=== PATIENT | male | born 1965 | race Caucasian/White ===

== ENCOUNTER 2025-02-11 15:27 | Inpatient (IN) ==
[2025-02-11] MEDS ORDERED: DILAUDID INJ IVP PRN (23:00)
[2025-02-11 23:37] LABS: MEAN PLATELET VOLUME 8.2 fL (7.4-11.0); RED CELL DISTRIBUTION WIDTH 16.5 % (11.6-16.5)
[2025-02-11 23:40] LABS: CREATININE 0.68 mg/dL (0.70-1.30); eGFR NON BLACK RACES > 60 (>60)
--- NOTE | 2025-02-11 23:42 | DR.H&P ---
H&P History & Physical for Day of: H&P Date: 02/11/25 Chief Complaint Chief Complaint: Severe rest pain both legs with nonhealing wound to the dorsum of the left foot History of Present Illness History of Present Illness: This is a 59-year-old male with significatn tobacco abuse history recently admitted to the hospital in [place], [place] with severe ischemia rest pain of both lower extremities with nonhealing wound to the left dorsal foot. Patient signed out AGAINST MEDICAL ADVICE and wasreferred to me for further evaluation by Dr. Moreland,podiatry. He has a history of significant tobacco abuse as above and history of femoral-femoral bypass performed over 2 years ago which is now occluded. CT angiogram shows complete occlusion of the infrarenal aorta with reconstitution of the common femoral arteries and bilateral superficial femoral artery occlusion with reconstitution of the popliteal arteries runoff on the right side of the posterior tibia with possible reconstitution of the anterior tibial artery. The left leg also shows left superficial artery occlusion with reconstitution of distal popliteal artery and main runoff is the posterior tibial artery. He gives a history of [place] a little over 2 years ago with a total of 6 coronary stents placed at that time over a 2-day period. He unfortunately has had no further follow-up with cardiology and has had significant progression of his peripheral cardiovascular disease. He will need cardiology evaluation. Past Medical History Past Medical History: COPD, Coronary Artery Disease and Hypertension Past Surgical History Surgical History: Angioplasty/Stents and Other (Femoral-femoral bypass, now occluded, history of chainsaw injury to the left distal leg now healed) Family History Family Medical History: Coronary Artery Disease and Hypertension Social History Does patient currently use any type of tobacco product: Yes Have you used tobacco products in the last 12 months: Yes Type of Tobacco Use: Cigarettes How many years tobacco product used: 50 Packs per day or dips/chews per day: 1 Alcohol Use: Other Drug Use: None Medications Home Medications: none recorded other than aspirin Allergies Allergies Allergy/AdvReac Type Severity Reaction Status Date / Time codeine Allergy Verified 02/11/25 23:30 Labs Labs: pending Review of Systems Constitutional: See HPI Eyes: No Symptoms Reported ENT: No Symptoms Reported Respiratory: No Symptoms Reported Cardiovascular: See HPI Gastrointestinal: No Symptoms Reported Genitourinary: No Symptoms Reported Musculoskeletal: See HPI Skin: See HPI Neurological: See HPI Physical Exam Vital Signs: Vital Signs Temperature 98.1 F Pulse Rate [Apical] 90 Respiratory Rate 20 Blood Pressure [Left Arm] 150/67 O2 Sat by Pulse Oximetry 96 Oriented: Normal, Time, Person and Place Eyes: Normal Ear: Normal Nose: Normal Throat: Normal Respiratory: Rhonchi Throughout Cardiovascular: Normal and Other (Femoral pulses are absent bilaterally posterior and tibial anterior tibial artery pulses absent bilaterally) : Normal Auscultation: Bowel Sounds: Normal Palpation: Normal Tenderness: Normal Skin: Wound (3 cm diameter wounds to the dorsal left foot approximately 3 mm deep with exposed subcutaneous tissue and tendon) Musculoskeletal: Normal Psychiatric: Normal Mood Description: Anxious (in pain) Affect: Anxious Speech Pattern: Clear and Appropriate Assessment/Plan (1) Atherosclerosis of [place] arteries of extremities with rest pain, right leg: Status: Acute Plan: Will review CT angiogram from [facility] in [place], [place]. Patient will need cardiac evaluation and consultation with podiatry as well as internal medicine, may need to treat his hypertension , coronary artery disease and COPD (2) Atherosclerosis of [place] arteries of extremities with rest pain, left leg: Status: Acute Plan: as above (3) Occluded aorta: Status: Acute Plan: Patient will need evaluation but most likely will require aortobifemoral bypass as well as bilateral lower extremity arterial intervention for bilateral superficial femoral artery occlusions. She will probably have some type of hybrid procedure performed. (4) Essential (primary) hypertension: Status: Acute Plan: Consult internal medicine for treatment of this (5) Chronic obstructive pulmonary disease, unspecified: Status: Acute Plan: Consult internal medicine (6) Hx of myocardial infarction: Narrative Support Text: History of coronary stents x 6 placed over 2 years ago. No further follow-up with cardiology. Patient will need cardiac evaluation. Will consult cardiology. Status: Acute Review H&P Reviewed: Yes Patient was examined?: Yes
[2025-02-11 23:57] VITALS: BMI 21.0
[2025-02-12] MEDS: LOVENOX INJ 80 MG SYR SC SCH (00:30)
[2025-02-12] MEDS: LR 1,000 ML IV 1,000 ML IV SCH (00:46)
[2025-02-12] MEDS: ZOSYN VIAL 3.375 GRAMS 3.375 G in NS 100 ML IV 100 ML IV SCH (00:46)
--- NOTE | 2025-02-12 05:41 | EKG ---
Test Reason : Pre op Blood Pressure : */* mmHG Vent. Rate : 76 BPM Atrial Rate : 76 BPM P-R Int : 128 ms QRS Dur : 88 ms QT Int : 448 ms P-R-T Axes : 1 22 -11 degrees QTc Int : 504 ms Normal sinus rhythm T wave abnormality, consider anterior ischemia Prolonged QT Abnormal ECG No previous ECGs available Confirmed by Nixon Medel MD ([id number]) on 02/12/2025 11:52:43 AM Referred By: Confirmed By: Nixon Medel MD
--- NOTE | 2025-02-12 08:22 | RAD ---
EXAMINATION: CHEST, 1 VIEW HISTORY: PRE-OP BILATERAL LOWER EXT CRITICAL ISCHEMIA; NO MEDICAL HISTORY SURG HX:ANGIOPLASTY/STENTS . COMPARISON STUDY: None. TECHNIQUE: Single portable AP view of the chest FINDINGS: Lungs are expanded. Nonspecific prominent interstitial markings in the pulmonary bases. Borderline cardiac silhouette enlargement. Normal pulmonary vascular pattern. CP angles are sharp. Bones are intact. IMPRESSION: Nonspecific prominent interstitial markings in the lower lung [place]. Borderline cardiac silhouette enlargement. THIS IS AN ELECTRONICALLY VERIFIED FINAL REPORT 02/12/2025 8:05 AM - Electronically signed by Iona Benavides MD
--- NOTE | 2025-02-12 09:04 | DR.CONSULT ---
CONSULT Consultation for Day of: Date: 02/12/25 Chief Complaint Chief Complaint: right foot wound Allergies Allergies Allergy/AdvReac Type Severity Reaction Status Date / Time codeine Allergy Verified 02/11/25 23:30 History of Present Illness History of Present Illness: Patient admitted to another facility -0 01/2025 for left foot pain and wound. Did have podiatry consult, arterial ultrasound, and lower extremity CTA. Labs showed anemia, mild hyperglycemia, and elevated lactic acid with normal repeat. Labs were otherwise benign. Arterial ultrasound did show severe plaque formation in the arteries of BLE. Suspected occlusion of the left superficial femoral artery with collateral formation. CTA showed chronic occlusion of the abdominal iliac artery, occluded femorofemoral graft, occluded bilateral SFA with reconstitution of popliteal arteries via geniculate artery collaterals, occluded left anterior tibial artery, two-vessel runoff to the right foot, single-vessel runoff to the left foot. After leaving AMA, foot pain continued along with progressive difficulty in ambulation. Presented here and admitted to vascular surgery services. Car diology, podiatry, and medicine consulted last night by surgical team. Blood pressure has been elevated overnight. Patient reports pain with any movement of his feet especially on the left. Labs consistent with discharge labs. Mild hyperglycemia with mild anemia. Patient reports that he stopped smoking yesterday. He does report that he has been buying opiates to help with the pain. PMH: CAD, PAD, HTN, tobacco abuse. PSH: Fem-Fem bypass. Coronary stents X6. Social: lives with sister. Daily cigarette smoker, 1ppd (quit yesterday). No EtOH or illicit drug use. ROS: 12 point ROS negative except for the above-noted lower extremity issues. PE: Well-developed, well-nourished male in no acute distress. Hearing intact conversation, head NCAT, EOMI, neck full range of motion. Heart regular rate and rhythm with no murmur. Lungs are clear with strong speech. Belly is soft, nontender, nondistended with bowel sounds present. Mood and affect are appropriate. Able to move all extremities with hesitation of his BLE and avoidance of plantarflexion bilaterally. Large open wound of the dorsum of the left foot with some granulation tissue. Mottling of bilateral lower extremitie s. Past Medical History Past Medical History: COPD, Coronary Artery Disease and Hypertension Past Surgical History Surgical History: Angioplasty/Stents and Other (Femoral-femoral bypass, now occluded, history of chainsaw injury to the left distal leg now healed) Family History Family Medical History: Coronary Artery Disease and Hypertension Social History Does patient currently use any type of tobacco product: Yes Have you used tobacco products in the last 12 months: Yes Type of Tobacco Use: Cigarettes How many years tobacco product used: 50 Packs per day or dips/chews per day: 1 Does any household member use tobacco: No Alcohol Use: Other Drug Use: None Medications Home Medications: codeine Allergy (Verified 02/11/25 23:30) Physical Exam Vital Signs: Vital Signs Temperature 98.1 F Pulse Rate [Apical] 76 Respiratory Rate 19 Blood Pressure [Left Arm] 144/63 O2 Sat by Pulse Oximetry 96 Plan (1) Essential (primary) hypertension: Status: Chronic Narrative Support Text: Will start losartan 50 daily. Increase as needed. Hypertensive protocol. (2) Atherosclerosis of [place] arteries of extremities with rest pain, right leg: Status: Acute Narrative Support Text: PAD management per vascular team. (3) Atherosclerosis of [place] arteries of extremities with rest pain, left leg: Status: Acute (4) Occluded aorta: Status: Acute (5) Chronic obstructive pulmonary disease, unspecified: Status: Acute Qualifiers: COPD type: chronic bronchitis Chronic bronchitis type: simple Qualified Code(s): J41.0 - Simple chronic bronchitis Narrative Support Text: Strongly suspect given smoking history. Nebs as needed. (6) Hx of myocardial infarction: Status: Acute (7) CAD without angina pectoris: Status: Chronic Narrative Support Text: Per cardiology.
[2025-02-12] MEDS: ASPIRIN EC 81 MG PO SCH (09:29)
[2025-02-12] MEDS: NICOTINE PATCH TD SCH (09:31)
[2025-02-12] MEDS: SANTYL EXT SCH (09:33)
--- NOTE | 2025-02-12 09:44 | DR.CONSULT ---
CONSULT Consultation for Day of: Date: 02/12/25 Chief Complaint Chief Complaint: nonhealing arterial ulcerations to the left foot Allergies Allergies Allergy/AdvReac Type Severity Reaction Status Date / Time codeine Allergy Verified 02/11/25 23:30 History of Present Illness History of Present Illness: Patient is a 59 y/o male with a PMHx of CAD w/ stents, COPD, and HTN. Patient was seen by podiatry at [facility] over a week ago. During that consultation he stated he had just been released from [facility] and during his time there he had sustained some nonhealing wounds. Patient states he tried clipping his toe nail to the left hallux and it still hasn't healed- it has now been a couple of weeks. He also admits that the wound to the top of his foot started in his shoes, he believes and has since gotten worse. Patient also states he has a type of foot drop that has been ongoing for 10 plus years. Patient does smoke and did not have palpable pulses to his feet. While at [facility], patient underwent a CTA and significant PAD was noted, he was told to follow up with Dr. Fine. Dr. Fine saw him in the office and sent him in for vascular intervention. Past Medical History Past Medical History: COPD, Coronary Artery Disease and Hypertension Past Surgical History Surgical History: Angioplasty/Stents and Other (Femoral-femoral bypass, now occluded, history of chainsaw injury to the left distal leg now healed) Family History Family Medical History: Coronary Artery Disease and Hypertension Social History Does patient currently use any type of tobacco product: Yes Have you used tobacco products in the last 12 months: Yes Type of Tobacco Use: Cigarettes How many years tobacco product used: 50 Packs per day or dips/chews per day: 1 Does any household member use tobacco: No Alcohol Use: Other Drug Use: None Medications Home Medications: codeine Allergy (Verified 02/11/25 23:30) Physical Exam Vital Signs: Vital Signs Temperature 98.1 F Pulse Rate [Apical] 76 Respiratory Rate 19 Blood Pressure [Left Arm] 144/63 O2 Sat by Pulse Oximetry 96 Derm:To the dorsal aspect of the left midfoot there is a what appears to be an arterial ulceration that currently measures 2.3 x 2.5 x 0.3 cm with tendon exposed. The ulceration is dry at this time with no purulence, no active drainage, no fluctance, no crepitus, no tunneling, no undermining appreciated. No noted exposed bone at this time. Periwound erythema is appreciated. To distal hallux of the left foot, there is a dry eschar present to the medial border of the nail. It is currently not draining, with no purulence, no active drainage, no fluctance, no crepitus, no tunneling, no undermining appreciated. Periwound erythema is appreciated at this time. Vascular: nonpalpable DP/PT to b/l lower extremities, CFT > 3 sec to digits of the left foot MSK:Dropfoot noted to the left lower extremity Neuro: diminished to the left lower extremity Oriented: Normal Plan (1) Atherosclerosis of [place] arteries of extremities with rest pain, right leg: Status: Acute Narrative Support Text: Due to the nature of the ulcerations, vascular intervention will be performed prior to further podiatric recommendations- local wound care for now No leukocytosis noted at this time, patient currently on IV Zosyn per vascular Wound culture was obtained Podiatry will continue to monitor Patient is high risk for limb loss due to vascular status, patient has been educated on the importance of smoking cessation and nutrients importance for overall health. Gentamicin cream ordered, please apply to left dorsal wound with silver alginate dressing and dry sterile dressing daily. Further recommendations will follow vascular intervention (2) Atherosclerosis of [place] arteries of extremities with rest pain, left leg: Status: Acute (3) Occluded aorta: Status: Acute (4) Essential (primary) hypertension: Status: Chronic (5) Chronic obstructive pulmonary disease, unspecified: Status: Acute (6) Hx of myocardial infarction: Status: Acute (7) Ischemic ulcer of foot due to atherosclerosis of [place] artery of extremity: Status: Acute
[2025-02-12] MEDS: COZAAR PO SCH (10:12)
[2025-02-12] MEDS: GENTAMICIN TOPICAL CRM TOP SCH (10:15)
[2025-02-12] MEDS: NS 250 ML IV 250 ML IV ONE (13:26)
[2025-02-12] MEDS: NS 250 ML IV 25 ML IV PRN (13:26)
[2025-02-12] MEDS: PERCOCET TAB 5/325 MG PO PRN (13:49)
--- NOTE | 2025-02-12 14:02 | RAD ---
EXAM: FOOT, LEFT HISTORY: ULCER; COMPARISON: None. TECHNIQUE: 3 views FINDINGS: No acute fracture or dislocation. No focal cortical destruction or aggressive periosteal reaction. No soft tissue gas or radiopaque foreign bodies. Normal midfoot alignment. Degenerative calcaneal heel spurs. IMPRESSION: No acute osseous findings. No radiographic evidence of osteomyelitis. THIS IS AN ELECTRONICALLY VERIFIED FINAL REPORT 02/12/2025 1:59 PM - Electronically signed by Dain Hernandez MD
--- NOTE | 2025-02-13 00:09 | NOTE.SOAP ---
Soap Note Note for Day of Date of Exam: 02/13/25 Subjective Data Subjective Data: Patient mated with ischemic lower extremities secondary to aortic occlusion and bilateral superficial artery occlusion. Has nonhealing wound to the left foot. Appreciate input from internal medicine in regards to treatment his blood pressure and input from podiatry. Objective Data Temperature: 98.1 F Pulse Rate: 76 Respiratory Rate: 17 Blood Pressure: 121/60 O2 Sat by Pulse Oximetry: 95 Objective Data: Patient with ischemic lower extremities no palpable pulses and nonhealing wound to the left dorsal foot. Assessment Assessment: Continue antibiotics, pain control and wound care. Plan Plan: Await cardiology consultation. This will determine how we proceed
[2025-02-13 06:05] LABS: MEAN PLATELET VOLUME 8.9 fL (7.4-11.0); RED CELL DISTRIBUTION WIDTH 16.5 % (11.6-16.5)
[2025-02-13 06:23] LABS: COR CA(FOR HYPOALB) 9.3 mg/dL (8.5-10.1); CREATININE 0.63 mg/dL (0.70-1.30); eGFR NON BLACK RACES > 60 (>60)
[2025-02-13 07:25] LABS: CHOL/HDL RATIO 4.6 (0.0-5.0)
--- NOTE | 2025-02-13 10:19 | NOTE.SOAP ---
Soap Note Note for Day of Date of Exam: 02/13/25 Subjective Data Subjective Data: Patient mated with severe ischemia in both legs, nonhealing wound of the left dorsal foot and known occluded distal aorta. He has been seen in consultation by podiatry and internal medicine. Cardiology consultation is pending today. This is for evaluation for appropriate level of risk for intervention. I reviewed his CT scan done at the [facility] in [place], [place] and unfortunately the study did not go high enough to show where the descending aorta is occluded. He will require repeat CT angiogram to determine this. Objective Data Temperature: 98.2 F Pulse Rate: 72 Respiratory Rate: 21 Blood Pressure: 121/60 O2 Sat by Pulse Oximetry: 96 Objective Data: Exam unchanged. Pain under better control. Assessment Assessment: Occluded aorta with bilateral suprasternal artery disease and severe ischemia both lower extremities nonhealing wound of the left foot. Plan Plan: Await cardiology consultation. Will need to repeat CT angiogram to assess his aorta.
--- NOTE | 2025-02-13 13:41 | DR.CONSULT ---
CONSULT Consultation for Day of: Date: 02/13/25 Chief Complaint Chief Complaint: preop pvd/known cad Allergies Allergies Allergy/AdvReac Type Severity Reaction Status Date / Time codeine Allergy Verified 02/11/25 23:30 History of Present Illness History of Present Illness: 59 yo male with PVD s/p fem/fem- also stents to lad/rca 03/17- no cardio f/u- took asa- no bp med/no statin/still smokes- had cp/nstemi with stents- none since but very inactive due to bad pvd- recent cta: total aorta/high grade disease Both legs throughout-consideration for surgery Past Medical History Past Medical History: COPD, Coronary Artery Disease and Hypertension Past Surgical History Surgical History: Angioplasty/Stents and Other (Femoral-femoral bypass, now occluded, history of chainsaw injury to the left distal leg now healed) Family History Family Medical History: Coronary Artery Disease and Hypertension Social History Does patient currently use any type of tobacco product: Yes Have you used tobacco products in the last 12 months: Yes Type of Tobacco Use: Cigarettes How many years tobacco product used: 50 Packs per day or dips/chews per day: 1 Does any household member use tobacco: No Alcohol Use: Other Drug Use: None Medications Home Medications: codeine Allergy (Verified 02/11/25 23:30) CONTINUE taking the following medications NK 02/12/25 [History] Physical Exam Vital Signs: Vital Signs Temperature 97.9 F Temperature 98.2 F Temperature 97.5 F Pulse Rate [Brachial] 80 Pulse Rate [Brachial] 69 Pulse Rate 72 Respiratory Rate 19 Respiratory Rate 21 Respiratory Rate 21 Respiratory Rate 21 Respiratory Rate 19 Respiratory Rate 21 Blood Pressure [Right Arm] 142/68 Blood Pressure [Right Arm] 147/67 Blood Pressure 121/60 O2 Sat by Pulse Oximetry 100 O2 Sat by Pulse Oximetry 96 O2 Sat by Pulse Oximetry 95 alert ox3 b bruits clear lungs rrr decreased pulses/bandage l foot labs: hct 31 cr 0.6 ldl 126 tg 87 hdl 40 ekg: ant t abnormality Plan (1) Atherosclerosis of [place] arteries of extremities with rest pain, right leg: Status: Acute (2) Atherosclerosis of [place] arteries of extremities with rest pain, left leg: Status: Acute (3) Occluded aorta: Status: Acute (4) Essential (primary) hypertension: Status: Chronic (5) Chronic obstructive pulmonary disease, unspecified: Status: Acute Qualifiers: COPD type: chronic bronchitis Chronic bronchitis type: simple Qualified Code(s): J41.0 - Simple chronic bronchitis (6) Hx of myocardial infarction: Status: Acute Narrative Support Text: stents to rca/lad 03/17- no f/u -no meds except asa/still smokes Plan: on asa- add bb/add statin- will get echo- high surgical risk- more appropriate to perform surgery with interventional cardiology available (7) Ischemic ulcer of foot due to atherosclerosis of [place] artery of extremity: Status: Acute
[2025-02-13] MEDS: TOPROL XL PO SCH (13:58)
--- NOTE | 2025-02-13 16:10 | NOTE.SOAP ---
Soap Note Note for Day of Date of Exam: 02/13/25 Subjective Data Subjective Data: Patient still with left foot and leg pain. Vascular surgery hoping for interventions but very high risk given vasculopathy status. Losartan added yesterday but metoprolol added today. This was to help with his CAD but also better BP control. Patient denies any other acute issues. No acute events per nursing overnight. Objective Data Objective Data: Thin, well-developed, well-nourished male in no acute distress. Head NCAT, hearing grossly normal. Speech is clear. Heart regular rate and rhythm. Lungs are clear. Bowel sounds present. Assessment Assessment: 1. Benign essential hypertension 2. Coronary disease without angina 3. Severe peripheral arterial/vascular disease. Plan Plan: High risk patient for any procedure. Continue blood pressure adjustments.
[2025-02-13] MEDS: CRESTOR TAB 10 MG PO SCH (21:08)
[2025-02-14 06:07] LABS: MEAN PLATELET VOLUME 8.4 fL (7.4-11.0); RED CELL DISTRIBUTION WIDTH 16.9 % (11.6-16.5)
[2025-02-14 06:26] LABS: COR CA(FOR HYPOALB) 9.4 mg/dL (8.5-10.1); CREATININE 0.62 mg/dL (0.70-1.30); eGFR NON BLACK RACES > 60 (>60)
--- NOTE | 2025-02-14 07:37 | CT ---
EXAM: CTA AORTA WITH RUNOFF HISTORY: LIMB THREATENING ISCHEMIA ROB LEGS ; ANGIOPLASTY/STENTS COMPARISON: None TECHNIQUE: br obtained without and with IV contrast. 3D MIPS images obtained and reviewed. Dose reduction techniques including Automated Exposure Control (AEC) and adjustment of mA and kV were utilized. FINDINGS: The visualized portions of the lower thorax demonstrate no acute process. Scarring and emphysema in the lower lungs. No acute osseous abnormality. No evidence of abdominal aortic aneurysm or dissection. Severe atherosclerosis in the distal aorta with occlusion of the infrarenal abdominal aorta and occlusion of the bilateral common, internal, and external iliac arteries. The left external iliac artery stent is occluded. Bifemoral stent is occluded. The celiac artery, SMA, bilateral renal arteries, and EDEL appear patent. Duplicated right renal arteries. There is collateralization of flow and reconstitution at the right common femoral artery with patency of the right common femoral and deep femoral arteries. Multifocal severe/high-grade stenosis and/or occlusion of the right SFA. The right popliteal artery appears patent. The right anterior tibial, posterior tibial, and peroneal arteries appear patent to the right foot. There is collateralization of flow and reconstitution at the left common femoral artery. The left common femoral and deep femoral arteries appear patent. The left SFA appears occluded. There is reconstitution at the left popliteal artery. The left posterior tibial and peroneal arteries are patent to the left foot. Occlusion of the left anterior tibial artery. The liver, gallbladder, spleen, pancreas, bilateral adrenal glands, and bilateral kidneys demonstrate no acute process given phase of contrast. No evidence of bowel obstruction. The appendix is unremarkable. Moderate colonic fecal burden. The bladder is unremarkable. No free air or fluid. IMPRESSION: Distal aortic occlusion. The bilateral common, internal, and external iliac arteries are also occluded as is the bifemoral stent. Reconstitution of flow at the bilateral common femoral arteries. There is multifocal occlusion of the bilateral superficial femoral arteries. Patent two-vessel runoff to the left foot and three-vessel runoff to the right foot. THIS IS AN ELECTRONICALLY VERIFIED FINAL REPORT 02/14/2025 7:33 AM - Electronically signed by Harmeet Matrínez MD
[2025-02-14 07:55] VITALS: TEMP 97.6
[2025-02-14] MEDS: COZAAR PO SCH (08:32)
[2025-02-14] MEDS: NS 100 ML IV 100 ML ONE (10:28)
[2025-02-14] MEDS: OMNIPAQUE 350 mg/mL 100 mL BTL 100 ML ONE (10:28)
[2025-02-14] MEDS: OMNIPAQUE 350 mg/mL 50 mL BTL 50 ML ONE (10:28)
[2025-02-14 11:40] VITALS: BP 122/62; PULSE 65; RESP 19; O2SAT 96
--- NOTE | 2025-02-14 13:23 | NOTE.SOAP ---
Soap Note Note for Day of Date of Exam: 02/14/25 Subjective Data Subjective Data: no cp/sob- now on std meds: asa/statin/bb/arb- must stop smoking Objective Data Objective Data: carotid dopplers: total joanna/60% lica- needs f/u 6 months= echo: good lv Assessment Assessment: vasculopath: carotids/coronaries/PVD Plan Plan: cont asa/bb/arb/statin
--- NOTE | 2025-02-14 17:22 | NOTE.SOAP ---
Soap Note Note for Day of Date of Exam: 02/14/25 Subjective Data Subjective Data: No acute events overnight. Patient rested well. Still with left leg and foot pain. Objective Data Objective Data: Well-developed, well-nourished male in no acute distress. Heart regular rate and rhythm. Lungs are clear bilaterally. Bowel sounds are present and belly is soft & nontender. Assessment Assessment: 1. Benign essential hypertension 2. Coronary disease without angina 3. Severe peripheral arterial/vascular disease. 4. Anemia of chronic disease Plan Plan: Continue to adjust meds. High risk patient for any procedure. Continue to monitor labs.
--- NOTE | 2025-02-15 09:06 | W.DIS.FURT ---
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 He presented with severe ischemia both lower extremities and nonhealing wound to the dorsum of the left foot. CT angiogram was consistent with occluded infrarenal aorta with reconstitution of the common femoral arteries and occlusion of both superficial femoral arteries with good runoff. Patient has severe ischemia and was admitted for pain control, IV antibiotics and evaluation. Patient seen in consultation by podiatry and cardiology as well as internal medicine. I spoke with the patient on the day of discharge and told him we were planning aortobifemoral bypass but he needed a stress test first. The patient signed out AGAINST MEDICAL ADVICE and left abrutly. Vital Signs: Vital Signs (72 hours) 02/12/25 12:00 02/12/25 13:49 02/12/25 14:49 Temperature 97.8 F Pulse Rate Pulse Rate [Apical] 71 Pulse Rate [Brachial] Respiratory Rate 20 20 20 Blood Pressure Blood Pressure [Left Arm] 133/58 Blood Pressure [Right Arm] O2 Sat by Pulse Oximetry 97 Oxygen Delivery Method 02/12/25 15:49 02/12/25 19:00 02/12/25 20:00 Temperature 98.9 F 98.1 F Pulse Rate Pulse Rate [Apical] 73 Pulse Rate [Brachial] 76 Respiratory Rate 16 19 Blood Pressure Blood Pressure [Left Arm] 114/59 Blood Pressure [Right Arm] 121/60 O2 Sat by Pulse Oximetry 97 97 Oxygen Delivery Method Room Air 02/12/25 21:06 02/12/25 22:06 02/12/25 23:06 Temperature Pulse Rate Pulse Rate [Apical] Pulse Rate [Brachial] Respiratory Rate 19 19 19 Blood Pressure Blood Pressure [Left Arm] Blood Pressure [Right Arm] O2 Sat by Pulse Oximetry Oxygen Delivery Method 02/13/25 00:00 02/13/25 00:08 02/13/25 04:00 Temperature 98.2 F 98.1 F 98.2 F Pulse Rate 76 Pulse Rate [Apical] Pulse Rate [Brachial] 77 72 Respiratory Rate 20 17 21 Blood Pressure 121/60 Blood Pressure [Left Arm] Blood Pressure [Right Arm] 118/64 126/62 O2 Sat by Pulse Oximetry 98 95 96 Oxygen Delivery Method 02/13/25 05:27 02/13/25 06:27 02/13/25 07:00 Temperature Pulse Rate Pulse Rate [Apical] Pulse Rate [Brachial] Respiratory Rate 21 21 Blood Pressure Blood Pressure [Left Arm] Blood Pressure [Right Arm] O2 Sat by Pulse Oximetry Oxygen Delivery Method Room Air 02/13/25 08:00 02/13/25 10:19 02/13/25 10:21 Temperature 97.5 F L 98.2 F Pulse Rate 72 Pulse Rate [Apical] Pulse Rate [Brachial] 69 Respiratory Rate 19 21 21 Blood Pressure 121/60 Blood Pressure [Left Arm] Blood Pressure [Right Arm] 147/67 O2 Sat by Pulse Oximetry 95 96 Oxygen Delivery Method 02/13/25 11:21 02/13/25 12:00 02/13/25 16:00 Temperature 97.9 F 98.0 F Pulse Rate Pulse Rate [Apical] Pulse Rate [Brachial] 80 71 Respiratory Rate 21 19 20 Blood Pressure Blood Pressure [Left Arm] Blood Pressure [Right Arm] 142/68 129/61 O2 Sat by Pulse Oximetry 100 97 Oxygen Delivery Method 02/13/25 19:00 02/13/25 19:39 02/13/25 21:32 Temperature 97.9 F Pulse Rate Pulse Rate [Apical] Pulse Rate [Brachial] 74 Respiratory Rate 20 20 Blood Pressure Blood Pressure [Left Arm] 134/60 Blood Pressure [Right Arm] O2 Sat by Pulse Oximetry 98 Oxygen Delivery Method Room Air 02/13/25 22:32 02/13/25 23:52 02/14/25 03:58 Temperature 98.4 F 98.2 F Pulse Rate Pulse Rate [Apical] Pulse Rate [Brachial] 69 74 Respiratory Rate 18 20 20 Blood Pressure Blood Pressure [Left Arm] 154/65 129/73 Blood Pressure [Right Arm] O2 Sat by Pulse Oximetry 98 97 Oxygen Delivery Method 02/14/25 07:00 02/14/25 07:55 02/14/25 11:40 Temperature 97.6 F 97.6 F Pulse Rate Pulse Rate [Apical] Pulse Rate [Brachial] 70 65 Respiratory Rate 20 19 Blood Pressure Blood Pressure [Left Arm] 131/66 122/62 Blood Pressure [Right Arm] O2 Sat by Pulse Oximetry 97 96 Oxygen Delivery Method Room Air Labs: Laboratory Last Values WBC 6.7 X10^3/uL (3.6-10.0) 02/14/25 05:48 RBC 3.46 X10^6/uL (4.7-6.0) L 02/14/25 05:48 Hgb 10.9 g/dL (13.5-18.0) L 02/14/25 05:48 Hct 32.4 % (42.0-54.0) L 02/14/25 05:48 MCV 93.7 fL (80.0-100.0) 02/14/25 05:48 MCH 31.4 pg (27.0-34.0) 02/14/25 05:48 MCHC 33.5 g/dL (33.0-35.0) 02/14/25 05:48 RDW 16.9 % (11.6-16.5) H 02/14/25 05:48 Plt Count 209 X10^3/uL (150.0-450.0) 02/14/25 05:48 MPV 8.4 fL (7.4-11.0) 02/14/25 05:48 Neut % (Auto) 50.1 % (42.0-75.0) 02/14/25 05:48 Lymph % (Auto) 33.9 % (21.0-51.0) 02/14/25 05:48 [place] % (Auto) 8.0 % (0.0-13.0) 02/14/25 05:48 Eos % (Auto) 6.9 % (0.9-2.9) H 02/14/25 05:48 Baso % (Auto) 1.1 % (0.2-1.0) H 02/14/25 05:48 Neut # (Auto) 3.4 x10^3/uL (2.2-4.8) 02/14/25 05:48 Lymph # (Auto) 2.3 X10^3/uL (1.3-2.9) 02/14/25 05:48 [place] # (Auto) 0.5 x10^3/uL (0.3-0.8) 02/14/25 05:48 Eos # (Auto) 0.5 x10^3/uL (0.0-0.2) H 02/14/25 05:48 Baso # (Auto) 0.1 X10^3/uL (0.0-0.1) 02/14/25 05:48 Absolute Nucleated RBC 0.0 /100WBC 02/14/25 05:48 Sodium 140 mmol/L (136-145) 02/14/25 05:48 Corrected Sodium TNP 02/14/25 05:48 Potassium 4.1 mmol/L (3.5-5.1) 02/14/25 05:48 Chloride 104 mmol/L (98-107) 02/14/25 05:48 Carbon Dioxide 29.9 mmol/L (21-32) 02/14/25 05:48 BUN 11 mg/dL (7-18) 02/14/25 05:48 Creatinine 0.62 mg/dL (0.70-1.30) L 02/14/25 05:48 Est GFR (MDRD) Af Amer > 60 (>60) 02/14/25 05:48 Est GFR (MDRD) Non-Af > 60 (>60) 02/14/25 05:48 Glucose 102 mg/dL (65-99) H 02/14/25 05:48 Calcium 8.6 mg/dL (8.5-10.1) 02/14/25 05:48 Corrected Calcium 9.4 mg/dL (8.5-10.1) 02/14/25 05:48 Magnesium 1.9 mg/dL (2.0-2.9) L 02/14/25 05:48 Total Bilirubin 0.20 mg/dL (0.2-1.0) 02/14/25 05:48 AST 20 Units/L (15-37) 02/14/25 05:48 ALT 16 Units/L (12-78) 02/14/25 05:48 Alkaline Phosphatase 81 Units/L (46-116) 02/14/25 05:48 Total Protein 6.6 g/dL (6.4-8.2) 02/14/25 05:48 Albumin 3.0 g/dL (3.4-5.0) L 02/14/25 05:48 Globulin 3.6 g/dL (2.5-4.5) 02/14/25 05:48 Albumin/Globulin Ratio 0.8 Ratio (1.1-2.1) L 02/14/25 05:48 Triglycerides 87 mg/dL (0-150) 02/13/25 05:23 Cholesterol 183 mg/dL (0-200) 02/13/25 05:23 LDL Cholesterol, Calc 126 mg/dL (0-100) H 02/13/25 05:23 HDL Cholesterol 40 mg/dL (40-60) 02/13/25 05:23 Cholesterol/HDL Ratio 4.6 (0.0-5.0) 02/13/25 05:23 Reason For Visit: BILATERAL LOWER EXT CRITICAL [place] Discharge Date Discharge Date: 02/14/25 Discharge Diagnosis All Active Problems (Updated 02/12/25 @ 09:04 by Felipe Christie MD) CAD without angina pectoris (Chronic) Ischemic ulcer of foot due to atherosclerosis of [place] artery of extremity (Acute) Hx of myocardial infarction (Acute) Chronic obstructive pulmonary disease, unspecified (Acute) Essential (primary) hypertension (Chronic) Occluded aorta (Acute) Atherosclerosis of [place] arteries of extremities with rest pain, left leg (Acute) Atherosclerosis of [place] arteries of extremities with rest pain, right leg (Acute) Plan of Treatment: Seriousness of this patient's situation was explained to this patietn by myself. He acknowledges that something will need to be done otherwise he is extreme risk of bilateral limb loss. 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 He presented with severe ischemia both lower extremities and nonhealing wound to the dorsum of the left foot. CT angiogram was consistent with occluded infrarenal aorta with reconstitution of the common femoral arteries and occlusion of both superficial femoral arteries with good runoff. Patient has severe ischemia and was admitted for pain control, IV antibiotics and evaluation. Patient seen in consultation by podiatry and cardiology as well as internal medicine. I spoke with the patient on the day of discharge and told him we were planning aortobifemoral bypass but he needed a stress test first. The patient signed out AGAINST M EDICAL ADVICE and left abrutly. Patient Disposition: AGAINST MEDICAL ADVICE Condition: Stable Health Concerns: Post Hospitalization: new medications and changes needed to prevent readmission or further decline. Pt educated and given instructions on all concerns. Plan of Treatment: Seriousness of this patient's situation was explained to this patietn by myself. He acknowledges that something will need to be done otherwise he is extreme risk of bilateral limb loss. Assessment: see hospital course Prescription drug monitoring program results: PDMP was not reviewed Prescriptions: No Action NK Follow ups/Referrals Follow ups/Referrals: Randall Fine [Primary Care Provider, Unknown] - 1 WEEK Instructions Print Language: HEBREW
== END 2025-02-14 15:10 | disposition left against medical advice (07) | DRG 301 ==
LOC: MED/SURG
PROVIDERS: ADMIT Surgery; ATTEND Surgery